=== PATIENT | female | born 1940 | race Hispanic/Latino ===

== ENCOUNTER 2024-06-25 18:10 | Emergency (ER) | payer OTHER ==
--- OUTSIDE RECORDS SUMMARY | 2024-06-25 18:15 | XMS REPORT | Continuity of Care Document ---
Author Name Unknown Address [address] [place] [address] [facility] th[facility] Address [address] [place] [address] Care Team Providers Care Clinic Assistant Name Role Phone Krunal Esqueda Attending Clinician Unavailable DANIELE LINDSEY Attending Clinician Unavailable 2, [facility] Attending Clinician Unavailable Daniele Lindsey DO Attending Clinician Doctor Unassigned, [place] Attending Clinician U navailable Payers Payer Name Policy Type Policy Number Effective Date Expirati on Date Source [facility] [id number] 2013 00:00:00 [id number] 2005 00:00:00 [facility] MEDICAID MC [id number] 2016 00:00:00 [facility] [id number] 2005 00:00:00 [facility] MEDICAID MC [id number] 2016 00:00:00 [facility] [id number] 2005 00:00:00 [facility] MEDICAID MC [id number] 2016 00:00:00 [facility] [id number] 2013 00:00:00 MEDICAID MC [id number] 2016 00:00:00 [facility] MEDICARE NOVITAS [id number] 2005 00:00:00 [facility] Problems Condition Name Condition Details Condition Category Status Onset Date Resolution Date Last Treatment Date Treating Clinician Comments Source Chronic kidney disease stage 3B (disorder) Stage 3b chronic kidney disease Problem [facility] [id number] CKD (chronic kidney disease) stage 4, GFR 15-29 ml/min Problem [facility] Osteoarthr itis of multiple joints Osteoarthr itis of multiple joints Problem Active [facility] Pain Chronic generalize d pain Problem Active [facility] Dry eye syndrome Dry eye syndrome Problem Active [facility] Hyperglyce obdulia Hyperglyce obdulia Problem Active [facility] Chronic kidney disease stage 3 +5th digit eff 02/07/20*Ch ronic kidney disease, stage 3 Problem Active [facility] Vitamin D deficiency Vitamin D deficiency Problem Active [facility] Benign essential hypertensi on Benign essential hypertensi on Problem Active [facility] Vitamin B12 deficiency (non anemic) Vitamin B 12 deficiency Problem Active [facility] Malaise and fatigue Malaise and fatigue Problem Active [facility] Hypertrigl yceridemia Hypertrigl yceridemia Problem Active [facility] Allergies, Adverse Reactions, Alerts Allergy Name Allergy Type Status Severity Reaction(s) Onset Date Inactive Date Treating Clinician Comments Source NO KNOWN ALLERGIE S Drug Class Active [facility] Social History Social Habit Start Date Stop Date Quantity Comments Source History of Tobacco Use [facility] Sex Assigned At [facility] Exposure to SARS-CoV-2 (event) Not sure [facility] Smoking Status Start Date Stop Date Source Unknown if ever smoked [facility] Never Smoker [facility] Medications Ordered Medication Name Filled Medication Name Start Date Stop Date Current Medication? Ordering Clinician Indication Dosage Frequency Signature (SIG) Comments Components Source amLODIPine Besylate 5 MG amLODIPine Besylate 5 MG 07-30 00:00: 00 No 1{table t} QD amLODIPine Besylate 5 MG Restasis 0.05 % Restasis 0.05 % No 1{drop_ into_af fected_ eye} BID Restasis 0.05 % Vitamin B-12 5000 MCG Vitamin B-12 5000 MCG No 1{table t_under _the_to ngue_an d_allow _to_dis solve} QD Vitamin B-12 5000 MCG Immunizations Ordered Immunization Name Filled Immunization Name Date Status Comments Source Moderna COVID-19 Vaccine Moderna COVID-19 Vaccine 2020-08-31 10:04:00 Completed [facility] Moderna COVID-19 Vaccine Moderna COVID-19 Vaccine 2020-08-31 10:04:00 Completed [facility] Moderna COVID-19 Vaccine Moderna COVID-19 Vaccine 2020-08-31 10:04:00 Completed [facility] Prevnar 20 (PCV20) Prevnar 20 (PCV20) Unknown Completed [facility] Moderna COVID-19 Vaccine Moderna COVID-19 Vaccine Unknown Completed [facility] Prevnar 20 (PCV20) Prevnar 20 (PCV20) Unknown Completed [facility] Moderna COVID-19 Vaccine Moderna COVID-19 Vaccine Unknown Completed [facility] Prevnar 20 (PCV20) Prevnar 20 (PCV20) Unknown Completed [facility] Moderna COVID-19 Vaccine Moderna COVID-19 Vaccine Unknown Completed [facility] Prevnar 20 (PCV20) Prevnar 20 (PCV20) Unknown Completed [facility] Moderna COVID-19 Vaccine Moderna COVID-19 Vaccine Unknown Completed [facility] Prevnar 20 (PCV20) Prevnar 20 (PCV20) Unknown Completed [facility] Moderna COVID-19 Vaccine Moderna COVID-19 Vaccine Unknown Completed [facility] Prevnar 20 (PCV20) Prevnar 20 (PCV20) Unknown [facility] Vacc[facility] Moderna COVID-19 Vaccine Unknown Completed [facility] Prevnar 20 (PCV20) Prevnar 20 (PCV20) Unknown Completed [facility] COVID-19 Vaccine Moderna COVID-19 Vaccine Unknown Completed [facility] Vital Signs Vital Name Observation Time Observation Value Comments S ource height 2024-04-27 08:30:00 55 [in_i] Commo n [facility] weight 2024-04-27 08:30:00 96.2 [lb_av] Com [facility] temperature 2024-04-27 08:30:00 96.7 [degF] Com [facility] bmi 2024-04-27 08:30:00 22.36 kg/m2 Comm on [facility] oximetry 2024-04-27 08:30:00 99 % Commo n [facility] respiratory rate 2024-04-27 08:30:00 16 /min [facility] blood pressure systolic 2024-04-27 08:30:00 112 mm[Hg] [facility] blood pressure diastolic 2024-04-27 08:30:00 62 mm[Hg] [facility] height 2023-10-11 09:50:00 55 [in_i] Commo n [facility] weight 2023-10-11 09:50:00 96.0 [lb_av] Com [facility] temperature 2023-10-11 09:50:00 97.8 [degF] Com [facility] bmi 2023-10-11 09:50:00 22.31 kg/m2 Comm on [facility] oximetry 2023-10-11 09:50:00 99 % Commo n [facility] respiratory rate 2023-10-11 09:50:00 18 /min Common [facility] blood pressure systolic 2023-10-11 09:50:00 126 mm[Hg] [facility] blood pressure diastolic 2023-10-11 09:50:00 67 mm[Hg] Common [facility] height 2023-10-11 09:50:00 55 [in_i] Commo n [facility] weight 2023-10-11 09:50:00 96.0 [lb_av] Com [facility] temperature 2023-10-11 09:50:00 97.8 [degF] Com [facility] bmi 2023-10-11 09:50:00 22.31 kg/m2 Comm on [facility] oximetry 2023-10-11 09:50:00 99 % Commo n [facility] respiratory rate 2023-10-11 09:50:00 18 /min [facility] blood pressure systolic 2023-10-11 09:50:00 126 mm[Hg] Common [facility] blood pressure diastolic 2023-10-11 09:50:00 67 mm[Hg] [facility] height 2023-10-11 09:50:00 55 [in_i] Commo n [facility] weight 2023-10-11 09:50:00 96.0 [lb_av] Com [facility] temperature 2023-10-11 09:50:00 97.8 [degF] Com [facility] bmi 2023-10-11 09:50:00 22.31 kg/m2 Comm on [facility] oximetry 2023-10-11 09:50:00 99 % Commo n [facility] respiratory rate 2023-10-11 09:50:00 18 /min [facility] blood pressure systolic 2023-10-11 09:50:00 126 mm[Hg] [facility] blood pressure diastolic 2023-10-11 09:50:00 67 mm[Hg] [facility] height 2023-04-18 09:10:00 55 [in_i] Commo n [facility] weight 2023-04-18 09:10:00 93.2 [lb_av] Com mon [facility] temperature 2023-04-18 09:10:00 97.7 [degF] Com [facility] bmi 2023-04-18 09:10:00 21.66 kg/m2 Comm on [facility] oximetry 2023-04-18 09:10:00 99 % Commo n [facility] blood pressure systolic 2023-04-18 09:10:00 138 mm[Hg] [facility] blood pressure diastolic 2023-04-18 09:10:00 70 mm[Hg] Common [facility] height 2022-09-07 09:00:00 57.11 [in_i] Com [facility] weight 2022-09-07 09:00:00 100.8 [lb_av] Co mmon [facility] temperature 2022-09-07 09:00:00 97.7 [degF] Com [facility] bmi 2022-09-07 09:00:00 21.73 kg/m2 Comm on [facility] oximetry 2022-09-07 09:00:00 97 % Commo n [facility] respiratory rate 2022-09-07 09:00:00 16 /min Common [facility] blood pressure systolic 2022-09-07 09:00:00 138 mm[Hg] [facility] blood pressure diastolic 2022-09-07 09:00:00 70 mm[Hg] [facility] height 2022-09-07 09:00:00 57.11 [in_i] Com [facility] weight 2022-09-07 09:00:00 100.899 [lb_av] [facility] temperature 2022-09-07 09:00:00 97.7 [degF] Com [facility] bmi 2022-09-07 09:00:00 21.75 kg/m2 Comm on [facility] oximetry 2022-09-07 09:00:00 97 % Commo n [facility] respiratory rate 2022-09-07 09:00:00 16 /min [facility] blood pressure systolic 2022-09-07 09:00:00 138 mm[Hg] [facility] blood pressure diastolic 2022-09-07 09:00:00 70 mm[Hg] [facility] height 2021-09-08 09:50:00 57.11 [in_i] Com [facility] weight 2021-09-08 09:50:00 104.4 [lb_av] Co mmon [facility] temperature 2021-09-08 09:50:00 97.3 [degF] Com [facility] bmi 2021-09-08 09:50:00 22.5 kg/m2 Commo n [facility] oximetry 2021-09-08 09:50:00 96 % Commo n [facility] respiratory rate 2021-09-08 09:50:00 17 /min [facility] blood pressure systolic 2021-09-08 09:50:00 133 mm[Hg] Common [facility] blood pressure diastolic 2021-09-08 09:50:00 63 mm[Hg] [facility] height 2021-09-08 10:00:00 57.11 [in_i] Com [facility] weight 2021-09-08 10:00:00 104.4 [lb_av] Co mmon [facility] temperature 2021-09-08 10:00:00 97.3 [degF] Com [facility] bmi 2021-09-08 10:00:00 22.5 kg/m2 Commo n [facility] oximetry 2021-09-08 10:00:00 96 % Commo n [facility] respiratory rate 2021-09-08 10:00:00 17 /min Common [facility] blood pressure systolic 2021-09-08 10:00:00 133 mm[Hg] Common [facility] blood pressure diastolic 2021-09-08 10:00:00 63 mm[Hg] Common [facility] height 2021-07-30 10:30:00 57.11 [in_i] Com [facility] weight 2021-07-30 10:30:00 102.5 [lb_av] Co on [facility] temperature 2021-07-30 10:30:00 97.3 [degF] Com [facility] bmi 2021-07-30 10:30:00 22.09 kg/m2 Comm on [facility] oximetry 2021-07-30 10:30:00 99 % Commo n [facility] respiratory rate 2021-07-30 10:30:00 17 /min [facility] blood pressure systolic 2021-07-30 10:30:00 132 mm[Hg] Common Spiri t [facility] blood pressure diastolic 2021-07-30 10:30:00 72 mm[Hg] Common [facility] height 2021-03-04 11:40:00 57.11 [in_i] Com [facility] weight 2021-03-04 11:40:00 102.8 [lb_av] Co [facility] temperature 2021-03-04 11:40:00 97.3 [degF] Com [facility] bmi 2021-03-04 11:40:00 22.16 kg/m2 Comm on [facility] oximetry 2021-03-04 11:40:00 97 % Commo n [facility] respiratory rate 2021-03-04 11:40:00 17 /min Common [facility] blood pressure systolic 2021-03-04 11:40:00 122 mm[Hg] Common [facility] blood pressure diastolic 2021-03-04 11:40:00 78 mm[Hg] [facility] height 2020-12-10 11:30:00 57.11 [in_i] Com [facility] weight 2020-12-10 11:30:00 110.7 [lb_av] Co mmon [facility] temperature 2020-12-10 11:30:00 97.2 [degF] Com [facility] bmi 2020-12-10 11:30:00 23.86 kg/m2 Comm on [facility] oximetry 2020-12-10 11:30:00 97 % Commo n [facility] respiratory rate 2020-12-10 11:30:00 16 /min [facility] blood pressure systolic 2020-12-10 11:30:00 136 mm[Hg] [facility] blood pressure diastolic 2020-12-10 11:30:00 70 mm[Hg] [facility] Procedures Procedure Date / Time Performed Performing Clinicia n Source URINALYSIS 2020-10-24 15:55:[address] [facility] CREATININE, URINE RANDOM 2020-10-24 15:55:00 Daniele Lindsey [facility] PHOSPHORUS 2020-10-24 15:48:[address] [facility] URIC ACID 2020-10-24 15:48:[address] [facility] MAGNESIUM 2020-10-24 15:48:[address] [facility] COMP. METABOLIC PANEL ([id number]) 2020-10-24 15:48:00 Daniele Lindsey [facility] CBC WITH DIFF 2020-10-24 15:48:00 Daniele Lindsey [facility] N-TERMINAL PRO-BNP 2020-10-24 15:48:00 Daniele Lindsey [facility] PHYSICIAN ORDERS 2020-10-24 05:01:00 Doctor Unas signed, [place] [facility] Encounters Start Date/Time End Date/Time Encounter Type Admission Type Attending Clinicians Care Facility Care Department Encounter ID Source 2024-04-19 16:22:00 Outpatient Esqueda, Krunal [facility] ST[facility] [id number] [facility] 2024-04-18 14:22:00 Outpatient Esqueda, Krunal [facility] [id number] [facility] 2023-01-11 15:20:00 Outpatient Esqueda, Krunal [facility] [id number] [facility] 2022-09-03 09:10:00 Outpatient Esqueda, Krunal [facility] [id number] [facility] 2022-03-05 08:43:00 Outpatient Esqueda, Krunal [facility] [id number] [facility] 2021-08-31 14:18:01 Outpatient Esqueda, Krunal [facility] [id number] [facility] 2021-07-30 10:14:00 Outpatient Esqueda, Krunal [facility] [id number] [facility] 2021-06-03 13:57:20 Outpatient Esqueda, Krunal [facility] [id number] [facility] 2021-06-03 13:34:23 Outpatient Esqueda, Krunal [facility] [id number] [facility] 2021-06-03 13:33:53 Outpatient Esqueda, Krunal STLMLC ST[facility] [id number] [facility] 2021-06-03 13:31:29 Outpatient Esqueda, Krunal STLMLC STL[facility]C [id number] [facility] 2021-06-03 12:50:38 Outpatient Esqueda, Krunal STLMLC STL[facility] [id number] [facility] 2021-06-03 12:49:56 Outpatient Esqueda, Krunal STLMLC STL[facility]C [id number] [facility] 2021-06-03 12:49:22 Outpatient Esqueda, Krunal [facility] [id number] [facility] 2021-06-03 12:39:18 Outpatient Esqueda, Krunal [facility] [id number] [facility] 2021-06-03 12:38:47 Outpatient Esqueda, Krunal STLMLC STL[facility] [id number] [facility] 2021-06-03 12:37:27 Outpatient Esqueda, Krunal STLMLC STL[facility] [id number] [facility] 2021-06-03 12:28:37 Outpatient Esqueda, Krunal STLMLC STL[facility]C [id number] [facility] 2024-06-21 00:00:00 2024-06-21 00:00:00 (TEL) STLMLC STLMLC [id number] [facility] 2024-04-27 00:00:00 2024-04-27 00:00:00 OFFICE VISIT ESTAB PT LEVEL 4 [facility]C STL[facility]C [id number] [facility] 2024-04-19 00:00:00 2024-04-19 00:00:00 (TEL) STLMLC STLMLC [id number] [facility] 2023-10-11 00:00:00 2023-10-11 00:00:00 OFFICE VISIT ESTAB PT LEVEL 4 STLMLC STL[facility]C [id number] [facility] 2023-10-11 00:00:00 2023-10-11 00:00:00 SUB ANNUAL MCR WELLNESS VISIT STLMLC STLMLC [id number] [facility] 2023-04-18 00:00:00 2023-04-18 00:00:00 OFFICE VISIT ESTAB PT LEVEL 4 STLMLC STLMLC [id number] [facility] 2023-04-12 00:00:00 2023-04-12 00:00:00 (TEL) STLMLC STLMLC [id number] [facility] 2023-02-28 00:00:00 2023-02-28 00:00:00 (TEL) STLMLC STLMLC [id number] [facility] 2022-09-07 00:00:00 2022-09-07 00:00:00 OFFICE VISIT ESTAB PT LEVEL 4 [facility]C STL[facility]C [id number] [facility] 2022-09-07 00:00:00 2022-09-07 00:00:00 SUB ANNUAL MCR WELLNESS VISIT STLMLC STLMLC [id number] [facility] 2022-08-30 00:00:00 2022-08-30 00:00:00 (TEL) STLMLC STLMLC [id number] [facility] 2021-09-08 00:00:00 2021-09-08 00:00:00 OFFICE VISIT ESTAB PT LEVEL 4 STLMLC STL[facility]C [id number] [facility] 2021-09-08 00:00:00 2021-09-08 00:00:00 SUB ANNUAL MCR WELLNESS VISIT STLMLC STLMLC [id number] [facility] 2021-09-08 00:00:00 2021-09-08 00:00:00 (TEL) STLMLC STLMLC [id number] [facility] 2021-08-12 00:00:00 2021-08-12 00:00:00 (TEL) STLMLC STLMLC [id number] [facility] 2021-08-12 00:00:00 2021-08-12 00:00:00 (TEL) STLMLC STLMLC [id number] [facility] 2021-07-30 00:00:00 2021-07-30 00:00:00 OFFICE VISIT ESTAB PT LEVEL 4 STLMLC STLMLC [id number] [facility] 2021-07-23 00:00:00 2021-07-23 00:00:00 (TEL) STLMLC STLMLC [id number] [facility] 2021-03-04 00:00:00 2021-03-04 00:00:00 OFFICE VISIT ESTAB PT LEVEL 4 STLMLC STLMLC [id number] [facility] 2020-12-10 00:00:00 2020-12-10 00:00:00 OFFICE VISIT ESTAB PT LEVEL 4 STLMLC STL[facility]C [id number] [facility] 2020-12-03 00:00:00 2020-12-03 00:00:00 (TEL) STLMLC STLMLC [id number] [facility] 2020-10-24 11:15:00 2020-10-24 11:15:00 Outpatient R DANIELE LINDSEY [facility] [id number] [facility] 2020-10-24 10:39:19 2020-10-24 10:54:19 Jewelry Sales Visit 2, Adc Lab Daniele Lindsey [facility] [id number] [facility] 2020-10-24 00:00:00 2020-10-24 00:00:00 Orders Only Doctor Unassigned, [place] [facility] [id number] [facility] 2020-08-15 00:00:00 2020-08-15 00:00:00 (TEL) STLMLC STLMLC [id number] [facility] 2020-08-15 00:00:00 2020-08-15 00:00:00 Outpatient STLMLC STL[facility]C [id number] [facility] 2020-08-15 00:00:00 2020-08-15 00:00:00 Outpatient STLMLC STL[facility]C [id number] [facility] 2020-07-22 00:00:00 2020-07-22 00:00:00 Outpatient STLMLC STLMLC [id number] [facility] 2020-07-18 00:00:00 2020-07-18 00:00:00 Outpatient STLMLC STLMLC [id number] [facility] 2020-07-16 00:00:00 2020-07-16 00:00:00 Outpatient STLMLC STLMLC [id number] [facility] Results Test Description Test Time Test Comments Results Result Co mments Source COMP. METABOLIC PANEL ([id number])2020-10-24 18:19:53* Test Item Value Reference Range Interpretation Comme nts NA (test code = 8795614213) 141 mmol/L 135-145 K (test code = 0383012792) 5.0 mmol/L 3.5-5.0 CL (test code = 3187817078) 103 mmol/L 98-108 CO2 TOTAL (test code = 6325607288) 27 mmol/L 23-31 AGAP (test code = 6482041563) 2-16 BUN (test code = 6239795704) 30 mg/dL 7-23 H GLUCOSE (test code = 5196279851) 92 mg/dL 70-110 CREATININE (test code = 4881973528) 2.06 mg/dL 0.50-1.04 H TOTAL BILI (test code = 0414009473) 0.7 mg/dL 0.1-1.1 CALCIUM (test code = 8898031000) 10.9 mg/dL 8.6-10.6 H T PROTEIN (test code = 8371812937) 8.7 g/dL 6.3-8.2 H ALBUMIN (test code = 2879192350) 5.0 g/dL 3.5-5.0 ALK PHOS (test code = 5518888150) 95 U/L 34-122 ALTv (test code = 1742-6) <4 5-35 L AST(SGOT) (test code = 4764899190) 30 U/L 13-40 eGFR (test code = 5315486572) mL/min/1.73m2 WESLEY (test code = WESLEY) Association of Glomerular Filtration Rate (GFR) and Staging of Kidney Disease* + --+ --+ ------+| GFR (mL/min/1.73 m2) ?| With Kidney Damage ?| ?Without Kidney Damage+ --------+ --------+ +| ?>90 ?| ?Stage one ?| ? Normal ?+ ---+ ---+ -------+| ?60-89 ?| ?Stage two ?| ? Decreased GFR ? + --+ --+ ------+| ?30-59 ?| ?Stage three ?| ? Stage three ? + --+ --+ ------+| ?15-29 ?| ?Stage four ? | ? Stage four ?+ ---+ ---+ -------+| ?<15 (or dialysis) ? ?| ?Stage five ? | ? Stage five ?+ ---+ ---+ -------+ *Each stage assumes the associated GFR level has been in effect for at least three months. ?Stages 1 to 5, with or without kidney disease, indicate chronic kidney disease. Notes: Determination of stages one and two (with eGFR >59mL/min/1.73 m2) requires estimation of kidney damage for at least three months as defined by structural or functional abnormalities of the kidney, manifested by either:Pathological abnormalities or Markers of kidney damage (including abnormalities in the composition of the blood or urine or abnormalities in imaging tests). Lab Interpretation (test code = 30926-0) Abnormal [facility] [id number] 17:45:39* Test Item Value Reference Range Interpretation Comme nts APPEARANCE (test code = 2694594702) Clear Clear COLOR (test code = 3372854401) Yellow Yellow PH (test code = 1403342326) 4.8-8.0 SP GRAVITY (test code = 1729220610) 1.003-1.030 GLU U QUAL (test code = 6866085088) Normal Normal BLOOD (test code = 2699297799) 1+ Negative A KETONES (test code = 6836157078) Negative Negative PROTEIN (test code = 2887-8) Negative Negative UROBILIN (test code = 2687790327) Normal Normal BILIRUBIN (test code = 7575249003) Negative Negative NITRITE (test code = 6923532073) Negative Negative LEUK ANA (test code = 9023078779) Negative Negative RBC/HPF (test code = 6565038119) See_Comment [Automated messa ge] The system which generated this result transmitted reference range: 0 - 3 HPF. The reference range was not used to interpret this result as normal/abnormal. WBC/HPF (test code = 7841678007) See_Comment [Automated messa ge] The system which generated this result transmitted reference range: 0 - 5 HPF. The reference range was not used to interpret this result as normal/abnormal. BACTERIA (test code = 1097868153) Negative Negative MUCOUS (test code = 3258341822) Slight Negative LPF A SQ EPITH (test code = 6627065367) HPF HYAL CAST (test code = 7134386005) See_Comment H [Automated messa ge] The system which generated this result transmitted reference range: <=2 LPF. The reference range was not used to interpret this result as normal/abnormal. Lab Interpretation (test code = 85607-8) Abnormal [facility] WITH [id number] 17:30:36* Test Item Value Reference Range Interpretation Comme nts WBC (test code = 6690-2) See_Comment [Automated messa ge] The system which generated this result transmitted reference range: 4.30 - 11.10 10*3/?L. The reference range was not used to interpret this result as normal/abnormal. RBC (test code = 789-8) See_Comment [Automated messa ge] The system which generated this result transmitted reference range: 3.93 - 5.25 10*6/?L. The reference range was not used to interpret this result as normal/abnormal. HGB (test code = 718-7) 14.5 g/dL 11.6-15.0 HCT (test code = 4544-3) 45.0 % 35.7-45.2 MCV (test code = 787-2) 92.6 fL 80.6-95.5 MCH (test code = 785-6) 29.8 pg 25.9-32.8 MCHC (test code = 786-4) 32.2 g/dL 31.6-35.1 RDW-SD (test code = 82043-9) 43.6 fL 39.0-49.9 RDW-CV (test code = 788-0) 12.7 % 12.0-15.5 PLT (test code = 777-3) See_Comment [Automated messa ge] The system which generated this result transmitted reference range: 166 - 358 10*3/?L. The reference range was not used to interpret this result as normal/abnormal. MPV (test code = 17344-2) 10.2 fL 9.5-12.9 NRBC/100 WBC (test code = 0646774788) See_Comment [Automated me ssage] The system which generated this result transmitted reference range: 0.0 - 10.0 /100 WBCs. The reference range was not used to interpret this result as normal/abnormal. NRBC x10^3 (test code = 8277983965) <0.01 See_Comment [Automated me ssage] The system which generated this result transmitted reference range: 10*3/?L. The reference range was not used to interpret this result as normal/abnormal. GRAN MAT (NEUT) % (test code = 770-8) 46.9 % IMM GRAN % (test code = 2271933308) 0.30 % LYMPH % (test code = 736-9) 45.8 % MONO % (test code = 5905-5) 5.7 % EOS % (test code = 713-8) 0.7 % BASO % (test code = 706-2) 0.6 % GRAN MAT x10^3(ANC) (test code = 6780273239) 3.30 10*3/uL 1.88-7.09 IMM GRAN x10^3 (test code = 6187884662) <0.03 0.00-0.06 LYMPH x10^3 (test code = 731-0) 3.22 10*3/uL 1.32-3.29 MONO x10^3 (test code = 742-7) 0.40 10*3/uL 0.33-0.92 EOS x10^3 (test code = 711-2) 0.05 10*3/uL 0.03-0.39 BASO x10^3 (test code = 704-7) 0.04 10*3/uL 0.01-0.07 [id number] 17:26:54* Test Item Value Reference Range Interpretation Comme nts NT-proBNP (test code = 1074265198) 160 pg/mL See_Comment [Automated message] The system which generated this result transmitted reference range: <=450. The reference range was not used to interpret this result as normal/abnormal. WESLEY (test code = WESLEY) Biotin has been reported to cause a negative bias, interpret results relative to patient's use of biotin. Lab Interpretation (test code = 86099-9) Normal [facility] [place] URINE [id number] 17:21:36* Test Item Value Reference Range Interpretation Comme nts CREAT U (test code = 3365870389) 76.1 mg/dL [facility]2021-[facility]-18 17:20:15* Test Item Value Reference Range Interpretation Comme nts MAGNESIUM (test code = 9813460828) 2.5 mg/dL 1.7-2.4 H Lab Interpretation (test cod e = 50039-1) Abnormal [facility]2021-06-18 17:19:54* Test Item Value Reference Range Interpretation Comme nts PHOSPHORUS (test code = 9703744295) 4.8 mg/dL 2.5-5.0 Lab Interpretation (test cod e = 22376-7) Normal [facility] [id number] 17:19:54* Test Item Value Reference Range Interpretation Comme nts URIC ACID (test code = 9797525075) 7.3 mg/dL 2.9-6.0 H Lab Interpretation (test cod e = 54393-4) Abnormal [facility] [place]"
[2024-06-25] MEDS ORDERED: HYDROCODONE/APAP 5/325 MG TAB ONE (19:32)
[2024-06-25] MEDS ORDERED: ASPIRIN 81 MG CHEWABLE TABLET ONE (19:32)
--- NOTE | 2024-06-25 19:38 | RAD REPORT ---
Procedure: Chest Single View HISTORY: Chest pain COMPARISON: none FINDINGS: Several linear opacities within the lungs bilaterally could either represent scarring or subsegmental atelectasis. No significant pleural effusion noted. The heart is normal size.
--- NOTE | 2024-06-25 19:42 | RAD REPORT ---
Exam:Shoulder Right 2+ Views History: Right shoulder pain Findings: Cortical irregularity involves the humeral neck presumably subacute fracture with some displacement o f fracture fragments. 1.7 cm bony density lies along the medial aspect of the junction of the humeral head and neck presumably an avulsed bone fragment. No dislocation noted Bones are osteoporotic CT may be helpful for further evaluation
[2024-06-25 20:00] LABS: Absolute Basophils 0.1 K/uL (0-0.5); Absolute Eosinophils 0.1 K/uL (0-0.5); Absolute Lymphocytes (CBC) 3.8 K/uL (0.7-4.9); Absolute Monocytes 0.5 K/uL (0.1-1.3); Absolute Neutrophil 3.4 K/uL (1.8-8.0); Basophils % 0.7 % (0-1.3); Hematocrit 39.5 % (36.0-45.0); Hemoglobin 13.2 g/dL (12.0-15.0); Lymphocytes % 48.2 % (15.3-44.8); MCH 30.6 pg (27.0-35.0); MCHC 33.5 g/dL (32.0-36.0); MCV 91.4 fL (80-100); MPV 7.3 fL (7.6-11.3); Monocytes % 6.8 % (3.3-12.3); Neutrophils % 43.3 % (41.7-73.7); Platelets 315 thou/uL (152-406); RBC Red Blood Cell Count 4.32 M/uL (3.86-4.86); Red Cell Distribution Width 13.7 % (12.1-15.2)
[2024-06-25 20:05] LABS: PT Prothrombin Time 12.2 SECONDS (9.4-12.5); Protime INR 1.16
[2024-06-25 20:18] LABS: AST/SGOT 19 U/L (15-37); Albumin 4.2 g/dL (3.4-5.0); Albumin/Globulin Ratio 0.9 (1.1-1.8); Alkaline Phosphatase 117 U/L (45-117); Anion Gap 10.8 mEq/L (5.0-15.0); BUN Blood Urea Nitrogen 32 mg/dL (7-18); Bicarbonate 23 mEq/L (21-32); Bilirubin Direct 0.2 mg/dL (0-0.2); Bilirubin Indirect, Calculated 0.4 mg/dL (0.2-0.8); Bilirubin Total 0.6 mg/dL (0.2-1.0); Globulin 4.6 g/dL (2.3-3.5); Glomerular Filtration Rate 21 ml/min (=/>90); Glucose Level 91 mg/dL (74-106); Magnesium 2.9 mg/dL (1.6-2.4); NT PRO-BNP 201 pg/mL (<450); Potassium 3.8 mEq/L (3.5-5.1); Protein, Total 8.8 g/dL (6.4-8.2); Sodium Level 135 mEq/L (136-145); Troponin High Sensitivity 7.9 pg/mL (<58.9)
[2024-06-25 20:20] LABS: ALT/SGPT < 14 U/L (13-56)
--- NOTE | 2024-06-25 21:16 | ER ---
Nurse's Notes [facility] Name: Tito Stanton Age: 84 yrs Sex: Female : 1940 Arrival Date: 06/25/2024 Time: 18:10 Bed 15 Private MD: Diagnosis: Fracture of upper end of humerus-right;Chest pain, unspecified;Hypertensive heart and chronic kidney disease without heart failure, with stage 1 through stage 4 chronic kidney disease, or unspecified chronic kidney disease Presentation: 06/25 18:29 Chief complaint: Patient's son or daughter states: fell last Tuesday and has hairline fx ko1 to right clavicle, has appt with dr Gilliam Tuesday. Having lots of pain and needs more pain meds. Coronavirus screen: At this time, the client does not indicate any symptoms associated with coronavirus-19. Ebola Screen: No symptoms or risks identified at this time. Initial Sepsis Screen: Does the patient meet any 2 criteria? No. Patient's initial sepsis screen is negative. Does the patient have a suspected source of infection? No. Patient's initial sepsis screen is negative. Risk Assessment: Do you want to hurt yourself or someone else? Patient reports no desire to harm self or others. Onset of symptoms is unknown. 18:29 Method Of Arrival: Wheelchair ko1 18:29 Acuity: AZUL 3 ko1 Triage Assessment: 18:36 General: Appears in no apparent distress. Behavior is calm, cooperative, appropriate ko1 for age. Pain: Complains of pain in anterior aspect of right shoulder and clavicle. Musculoskeletal: Reports pain in chest, right clavicle and right shoulder. Historical: - Allergies: 18:36 No Known Allergies; ko1 - Home Meds: 18:36 Unable to obtain [Active]; ko1 - PMHx: 18:36 Hypertension; ko1 - PSHx: 18:36 None; ko1 - Immunization history:: Adult Immunizations up to date. - Infectious Disease History:: Denies. - Social history:: Smoking status: Patient denies any tobacco usage or history of. Screenin:15 [facility] ED Fall Risk Assessment (Adult) History of falling in the last 3 months, jb4 including since admission Yes- single mechanical fall (1 pt) Confusion or Disorientation No (0 pts) Intoxicated or Sedated No (0 pts) Impaired Gait No (0 pts) Mobility Assist Device Used No (0 pt) Altered Elimination No (0 pt) Score/Fall Risk Level 0 - 2 = Low Risk Oriented to surroundings, Maintained a safe environment. Abuse screen: Denies threats or abuse. Nutritional screening: No deficits noted. Tuberculosis screening: No symptoms or risk factors identified. Assessment: 19:15 General: Appears in no apparent distress. uncomfortable, Behavior is calm, cooperative, jb4 appropriate for age. Pain: Complains of pain in right bicep Pain does not radiate. Pain currently is 8 out of 10 on a pain scale. Neuro: Level of Consciousness is awake, alert, obeys commands, Oriented to person, place, time, situation. Cardiovascular: Patient's skin is warm and dry. Respiratory: Airway is patent Respiratory effort is even, unlabored, Respiratory pattern is regular, symmetrical. Derm: Skin is intact, Skin is pink, warm \T\ dry. Bruising that is dark purple, green, on right bicep, dorsal aspect of right forearm, right tricep and palmar aspect of right forearm. Musculoskeletal: Circulation, motion, and sensation intact. Range of motion: limited in right shoulder. 20:00 Reassessment: Patient appears in no apparent distress at this time. Patient and/or jb4 family updated on plan of care and expected duration. Pain level reassessed. Patient is alert, oriented x 3, equal unlabored respirations, skin warm/dry/pink. 21:00 Reassessment: Patient appears in no apparent distress at this time. Patient and/or jb4 family updated on plan of care and expected duration. Pain level reassessed. Patient is alert, oriented x 3, equal unlabored respirations, skin warm/dry/pink. 22:00 Reassessment: Patient appears in no apparent distress at this time. Patient and/or jb4 family updated on plan of care and expected duration. Pain level reassessed. Patient is alert, oriented x 3, equal unlabored respirations, skin warm/dry/pink. Patient states feeling better. Vital Signs: 18:29 BP 149 / 87; Pulse 86; Resp 18; Temp 97.4; Pulse Ox 100% ; ko1 22:00 BP 155 / 70 (/lg); Pulse 77; Resp 16; Pulse Ox 100% ; jb4 ED Course: 18:15 Patient arrived in ED. im 18:30 Gideon Peralta PA is PHCP. cp 18:30 Becki Orozco MD is Attending Physician. cp 18:36 Triage completed. ko1 18:36 Arm band placed on right wrist. Patient placed in waiting room, Patient notified of ko1 wait time. 19:13 XRAY Chest (1 view) In Process Unspecified. EDMS 19:13 XRAY Shoulder RIGHT 2 view In Process Unspecified. EDMS 19:15 Patient has correct armband on for positive identification. Bed in low position. Call jb4 light in reach. Side rails up X 1. Provided Education on: Plan of care. 19:48 Troponin HS Sent. jb4 19:48 PT-INR Sent. jb4 19:48 NT PRO-BNP Sent. jb4 19:48 Magnesium Sent. jb4 19:48 LFT's Sent. jb4 19:48 CBC with Diff Sent. jb4 19:48 Basic Metabolic Panel Sent. jb4 19:48 Inserted saline lock: 24 gauge in left antecubital area, using aseptic technique. Blood jb4 collected. 21:10 Michael Nichols MD is Attending Physician. cp 21:12 Hollis Gilliam MD is Referral Physician. cp 22:17 No provider procedures requiring assistance completed. IV discontinued, intact, jb4 bleeding controlled, No redness/swelling at site. Pressure dressing applied. Administered Medications: 19:37 Drug: HYDROcodone-acetaminophen PO 5 mg-325 mg 1 tabs PO once Route: PO; jb4 22:14 Follow up: Response: No adverse reaction; Marked relief of symptoms; Pain is decreased; jb4 RASS: Alert and Calm (0) 19:48 Not Given (Physician Discretion): aspirinchewable tablet 324 mg PO once; 81 mg tablets jb4 x 4 Medication: 22:00 VIS not applicable for this client. jb4 Outcome: 21:15 Discharge ordered by . cp 22:17 Discharged to home via wheelchair, with family, jb4 22:17 Condition: stable 22:17 Discharge instructions given to patient, family, Instructed on discharge instructions, follow up and referral plans. medication usage, Demonstrated understanding of instructions, follow-up care, medications, Prescriptions given X 1, 22:17 Patient left the ED. jb4 Signatures: Dispatcher [employer] EDMS Gideon Peralta PA PA cp Bryson, James, RN RN jb4 Tanya Em, DAISHA RN ko1 Jazmine Reyes Corrections: (The following items were deleted from the chart) 22:16 19:15 BP 155 / 70; Pulse 77bpm; Resp 16bpm; Pulse Ox 100%; jb4 jb4
--- NOTE | 2024-06-25 21:16 | EDPHYS ---
Physician Documentation [facility] Name: Tito Stanton Age: 84 yrs Sex: Female : 1940 Arrival Date: 06/25/2024 Time: 18:10 Bed 15 Private MD: ED Physician Michael Nichols HPI: 06/25 18:45 This 84 yrs old Female presents to ER via Wheelchair with complaints of cp Shoulder Injury, Chest Pain, High Blood Pressure. 18:45 The patient or guardian complains of an injury, pain, that is acute. cp 18:45 right shoulder. cp 18:45 Context: resulted from a fall. Onset: The symptoms/episode began/occurred last Tuesday, cp 1 week ago. 18:45 Patient is Dutch speaking and son translating. Reports patient was seen at urgent cp care after fall and diagnosed with right clavicle fracture. Patient has upcoming appt with DR Tawana baxter on Tuesday. Has been taking OTC Tylenol for pain w/o relief. Pain worse today and now having pain to right side of chest that moves to middle of chest. Historical: - Allergies: 18:36 No Known Allergies; ko1 - Home Meds: 18:36 Unable to obtain [Active]; ko1 - PMHx: 18:36 Hypertension; ko1 - PSHx: 18:36 None; ko1 - Immunization history:: Adult Immunizations up to date. - Infectious Disease History:: Denies. - Social history:: Smoking status: Patient denies any tobacco usage or history of. ROS: 18:50 Constitutional: Negative for body aches, chills, fever, poor PO intake, cp 18:50 Eyes: Negative for injury, pain, redness, and discharge, cp 18:50 Cardiovascular: Positive for chest pain, Negative for edema, palpitations, 18:50 Respiratory: Negative for cough, shortness of breath, wheezing, 18:50 Abdomen/GI: Negative for abdominal pain, vomiting, diarrhea, constipation, 18:50 MS/extremity: Positive for injury or acute deformity, pain, of the right shoulder, 18:50 Neuro: Negative for altered mental status, dizziness, headache, numbness, syncope, near cp syncope, weakness, 18:50 All other systems are negative, Exam: 19:41 ECG was reviewed by the Attending Physician. cp 19:50 Constitutional: The patient appears in no acute distress, alert, awake, cp non-diaphoretic, non-toxic, well developed, well nourished, uncomfortable, 19:50 Head/Face: Normocephalic, atraumatic. cp 19:50 Eyes: Periorbital structures: appear normal, Conjunctiva: normal, no exudate, no injection, Sclera: no appreciated abnormality, Lids and lashes: appear normal, bilaterally, 19:50 ENT: External ear(s): are unremarkable, Nose: is normal, Mouth: Lips: moist, Oral mucosa: moist, Posterior pharynx: Airway: no evidence of obstruction, patent, 19:50 Neck: C-spine: vertebral tenderness, is not appreciated, crepitus, is not appreciated, ROM/movement: pain, is not appreciated, limited range of motion, is not appreciated, 19:50 Chest/axilla: Inspection: normal, Palpation: crepitus, is not appreciated, tenderness, is not appreciated, 19:50 Cardiovascular: Rate: normal, Rhythm: regular, Edema: is not appreciated, JVD: is not appreciated, 19:50 Respiratory: the patient does not display signs of respiratory distress, Respirations: normal, no use of accessory muscles, no retractions, labored breathing, is not present, Breath sounds: are clear throughout, no decreased breath sounds, no stridor, no wheezing, 19:50 Abdomen/GI: Inspection: abdomen appears normal, Palpation: abdomen is soft and non-tender, in all quadrants, 19:50 Back: vertebral tenderness, is not appreciated, 19:50 Neuro: Orientation: no acute changes, per family, Mentation: no acute changes, per family, Motor: moves all fours, no focal deficits, Sensation: no obvious gross deficits, Vital Signs: 18:29 BP 149 / 87; Pulse 86; Resp 18; Temp 97.4; Pulse Ox 100% ; ko1 22:00 BP 155 / 70 (/lg); Pulse 77; Resp 16; Pulse Ox 100% ; jb4 MDM: 18:39 Medical Screening Exam initiated cp 19:00 Differential diagnosis: Anterior dislocation with fracture, Anterior dislocation cp without fracture, Posterior dislocation with fracture, Posterior dislocation without fracture, humeral head fracture, clavicle fracture, acute MN. 21:15 Data reviewed: vital signs, nurses notes, lab test result(s), EKG, radiologic studies, cp plain films, and as a result, I will discharge patient. 21:15 I considered the following discharge prescriptions or medication management in the emergency department Medications were administered in the Emergency Department. See MAR. Independent interpretation of the following test(s) in the Emergency Department EKG: See my EKG interpretation above. Historians other than the Patient: Daughter/Son: son translates and provides hpi. Care significantly affected by the following chronic conditions: Hypertension. Counseling: I had a detailed discussion with the patient and/or guardian regarding the historical points, exam findings, and any diagnostic results supporting the discharge/admit diagnosis, lab results, radiology results, the need for outpatient follow up, a orthopedic surgeon, to return to the emergency department if symptoms worsen or persist or if there are any questions or concerns that arise at home. Response to treatment: the patient's symptoms have markedly improved after treatment, and as a result, I will discharge patient. 06/25 18:40 Order name: Basic Metabolic Panel; Complete Time: 20:52 06/25 20:52 Interpretation: Normal except: NA 135; BUN 32; CRE 2.24; GFR 21. 06/25 18:40 Order name: CBC with Diff; Complete Time: 20:06 06/25 20:06 Interpretation: Normal except: MPV 7.3; LYM% 48.2. 06/25 18:40 Order name: LFT's; Complete Time: 20:52 06/25 20:52 Interpretation: Normal except: TP 8.8; GLOB 4.6; A/G 0.9. 06/25 18:40 Order name: Magnesium; Complete Time: 20:52 06/25 20:52 Interpretation: Abnormal: MG 2.9. 06/25 18:40 Order name: NT PRO-BNP; Complete Time: 20:52 06/25 18:40 Order name: PT-INR; Complete Time: 20:06 06/25 18:40 Order name: Troponin HS; Complete Time: 20:52 06/25 21:09 Interpretation: Reviewed. 06/25 18:40 Order name: XRAY Chest (1 view); Complete Time: 20:01 cp 06/25 20:01 Interpretation: Report review. 06/25 18:40 Order name: XRAY Shoulder RIGHT 2 view; Complete Time: 20:01 cp 06/25 20:02 Interpretation: Reviewed. 06/25 18:40 Order name: EKG; Complete Time: 18:41 cp 06/25 18:40 Order name: Cardiac monitoring; Complete Time: 19:48 cp 06/25 18:40 Order name: EKG - Nurse/Tech; Complete Time: 19:48 cp 06/25 18:40 Order name: IV Saline Lock; Complete Time: 19:48 cp 06/25 18:40 Order name: Labs collected and sent; Complete Time: 19:48 cp 06/25 18:40 Order name: O2 Per Protocol; Complete Time: 19:48 cp 06/25 18:40 Order name: O2 Sat Monitoring; Complete Time: 19:48 cp 06/25 20:07 Order name: Shoulder Immobilizer; Complete Time: 22:14 cp EC:41 Rate is 87 beats/min. Rhythm is regular. FL interval is normal. QRS interval is normal. cp QT interval is normal. T waves are Inverted in leads aVL, aVR. Interpreted by me. Reviewed by me. Administered Medications: 19:37 Drug: HYDROcodone-acetaminophen PO 5 mg-325 mg 1 tabs PO once Route: PO; jb4 22:14 Follow up: Response: No adverse reaction; Marked relief of symptoms; Pain is decreased; jb4 RASS: Alert and Calm (0) 19:48 Not Given (Physician Discretion): aspirinchewable tablet 324 mg PO once; 81 mg tablets jb4 x 4 Disposition: 06/26 05:10 Co-signature as Attending Physician, Michael Nichols MD I agree with the assessment sp4 and plan of care. I reviewed the patient's care provided by the Advanced Practice Provider and agree with the diagnosis and treatment plan. Disposition Summary: 06/25/24 21:15 Discharge Ordered Notes: Location: Home cp Problem: an ongoing problem cp Symptoms: have improved cp Condition: Stable cp Diagnosis - Fracture of upper end of humerus - right cp - Chest pain, unspecified cp - Hypertensive heart and chronic kidney disease without heart failure, with stage 1 cp through stage 4 chronic kidney disease, or unspecified chronic kidney disease Followup: cp - With: Hollis Gilliam MD - When: 2 - 3 days - Reason: right proximal humerus fracture Discharge Instructions: - Discharge Summary Sheet cp - Nonspecific Chest Pain, Adult cp - Humerus Fracture Treated With Immobilization cp - Food Basics for Chronic Kidney Disease cp - Chronic Kidney Disease, Adult cp Forms: - Medication Reconciliation Form cp - Antibiotic Education cp - Prescription Opioid Use cp - Patient Portal Instructions cp - Leadership Thank You Letter cp Prescriptions: - acetaminophen-codeine 300-30 mg Oral tablet - take 1 tablet ORAL route every 6 hours as needed for pain; 15 tablet; Refills: cp 0, Product Selection Permitted Signatures: Dispatcher [employer] EDMS Gideon Peralta PA PA cp Killian Merritt, RN RN jb4 Tanya Em RN RN ko1 Michael Nichols MD MD sp4 Corrections: (The following items were deleted from the chart) 06/25 18:41 18:41 Shoulder Right 2 View+RAD.[email or web address].[email or web address] ordered. [facility] EDMA 06/26 19:33 06/25 18:45 Patient is Dutch speaking and son translating. Reports patient was seen cp at urgent care after fall and diagnosed with right clavicle fracture. Patient has upcoming appt. cp
[2024-06-25 23:16] VITALS: TEMP 97.4; O2SAT 100
[2024-06-25 23:17] VITALS: BP 155/70
== END 2024-06-25 22:17 | disposition home or self-care (01) ==
LOC: ER 18:10
DX: S42.291A Other displaced fracture of upper end of right humerus, initial encounter for closed fracture (principal); R07.9 Chest pain, unspecified; I12.9 Hypertensive chronic kidney disease with stage 1 through stage 4 chronic kidney disease, or unspecified chronic kidney disease; N18.4 Chronic kidney disease, stage 4 (severe)
CPT/HCPCS: 36415; 71045; 80048; 80076; 83735; 83880; 84484; 85025; 85610; 93005; 99284